=== PATIENT | male | born 1960 | race Caucasian/White ===

== ENCOUNTER 2022-01-18 12:21 | Outpatient (REF) | payer OTHER, SELFPAY ==
--- NOTE | ~2022-01-18 | XR_ITS ---
EXAMINATION: XR ANKLE, RIGHT XR FOOT, RIGHT CLINICAL INFORMATION: Pain ankle and foot COMPARISON: None TECHNIQUE: The ankle is imaged in 2 views. The foot is imaged in 2 views. A lateral view of the combined right ankle and foot is also obtained for a total of 5 views. FINDINGS: Bony mineralization appears within normal. There is no periarticular demineralization. The malleoli are intact and the ankle mortise is symmetric. There is no ankle fracture or dislocation or destructive process. No ankle capsular effusion. The subtalar joint is unremarkable. The retrocalcaneal recess is preserved. There is a borderline tiny posterior calcaneal spur. The midfoot and forefoot show no fracture or dislocation or erosive arthropathy. There is a bunion medial first metatarsal head and mild degenerative change first MTP. There is mild joint narrowing interphalangeal joints digits. XR/XR foot RT min 3V IMPRESSION: 1. No fracture, dislocation, or erosive arthropathy. 2. Bunion and degenerative changes first MTP. 3. Mild narrowing interphalangeal joints. 4. Tiny posterior calcaneal spur.
--- NOTE | ~2022-01-18 | XR_ITS ---
EXAMINATION: XR ANKLE, RIGHT XR FOOT, RIGHT CLINICAL INFORMATION: Pain ankle and foot COMPARISON: None TECHNIQUE: The ankle is imaged in 2 views. The foot is imaged in 2 views. A lateral view of the combined right ankle and foot is also obtained for a total of 5 views. FINDINGS: Bony mineralization appears within normal. There is no periarticular demineralization. The malleoli are intact and the ankle mortise is symmetric. There is no ankle fracture or dislocation or destructive process. No ankle capsular effusion. The subtalar joint is unremarkable. The retrocalcaneal recess is preserved. There is a borderline tiny posterior calcaneal spur. The midfoot and forefoot show no fracture or dislocation or erosive arthropathy. There is a bunion medial first metatarsal head and mild degenerative change first MTP. There is mild joint narrowing interphalangeal joints digits. XR/XR ankle RT 2V IMPRESSION: 1. No fracture, dislocation, or erosive arthropathy. 2. Bunion and degenerative changes first MTP. 3. Mild narrowing interphalangeal joints. 4. Tiny posterior calcaneal spur.
== END 2022-01-18 12:22 | disposition home or self-care (01) ==
LOC: HO.XRAY 12:21
PROVIDERS: PCP Nurse Practitioner; Visit Provider Nurse Practitioner Primary Care
DX: M25.571 Pain in right ankle and joints of right foot (principal); M79.671 Pain in right foot
CPT/HCPCS: 73600; 73630

== ENCOUNTER 2022-02-04 21:05 | Emergency (ER) | payer OTHER, SELFPAY ==
[2022-02-04 21:13] VITALS: BP 122/82; BP 97/66; PULSE 95; PULSE 97; RESP 16; TEMP 36.7; O2SAT 100; O2SAT 99; BMI 17.4
[2022-02-04 22:32] LABS: MANUAL DIFF FLAG NO
[2022-02-04 22:33] LABS: Basophils Absolute Auto 0.1 X10*3/uL (0.0-0.2); Eosinophils Absolute Auto 0.3 X10*3/uL (0.0-0.4); Eosinophils Percent Auto 2.9 % (0-4); Hematocrit 33.8 % (42.0-52.0); Hemoglobin 11.6 g/dl (14.0-18.0); Imm Gran Abs Auto 0.02 X10*3/uL (0.00-0.03); Imm Gran Pct Auto 0.2 % (0.0-0.4); Lymphocytes Absolute Auto 2.9 X10*3/uL (1.2-4.9); Lymphocytes Percent Auto 30.8 % (20-40); Mean Corpuscular HGB Conc 34.3 g/dl (31.0-36.0); Mean Corpuscular Hemoglobin 29.2 pg (27.0-33.0); Mean Corpuscular Volume 85.1 fL (80.0-98.0); Mean Platelet Volume 8.2 fL (9.4-12.4); Monocytes Absolute Auto 0.8 X10*3/uL (0.1-1.2); Monocytes Percent Auto 8.6 % (2-11); Neutrophils Absolute Auto 5.4 x10*3/uL (2.0-8.3); Neutrophils Percent Auto 56.5 % (45-73); Platelet Count 243 X10*3/uL (160-400); Red Blood Count 3.97 X10*6/uL (4.60-5.80); Red Cell Distribution Width 14.6 % (11.0-16.0); White Blood Count 9.5 X10*3/uL (4.8-10.8)
--- NOTE | 2022-02-04 22:39 | ED.GENADULT ---
HPI - General Adult General Chief complaint: General Medical Stated complaint: +Covid Time Seen by Provider: 02/04/22 22:26 Source: patient Mode of arrival: ambulatory Limitations: no limitations History of Present Illness HPI narrative: Patient not vaccinated against COVID had COVID 8 months ago been having nausea vomiting body aches diarrhea for last 3-4 days went to urgent care COVID tested positive started on paxlovid , does have a slight cough no significant shortness of breath vomited about 3 4 times a day 7 amount of diarrhea Related Data Previous Rx's Medication Instructions Recorded benzonatate 200 mg capsule 200 mg PO TID PRN cough #20 caps 02/04/22 dicyclomine 20 mg tablet 20 mg PO QID PRN abdominal pain 02/04/22 #12 tabs ondansetron 4 mg disintegrating 4 mg PO Q6-8H PRN nausea and 02/04/22 tablet vomiting #7 tabs Allergies Allergy/AdvReac Type Severity Reaction Status Date / Time acetaminophen [From TYLENOL] Allergy Unknown HIVES Verified 02/04/22 22:59 aspirin [ASPIRIN] Allergy Unknown HIVES Verified 02/04/22 22:59 Review of Systems Review of Systems: Yes all other systems are reviewed and are negative [facility] Social History Social History Advance Directives: No Advance Directives Information Provided: Yes Physical Exam ED Vital Signs: Vital Signs - 24 hr 02/04/22 21:13 02/04/22 23:51 Temperature 98.0 F 98.1 F Pulse Rate 95 67 Respiratory Rate 16 18 Blood Pressure 97/66 97/68 Pulse Oximetry 99 98 Oxygen Delivery Method Room Air Room Air BMI result Body Mass Index 17.4 Appearance: Alert. Oriented X3. No acute distress. ENT: Pharynx normal. Oral Mucosa moist Neck: Normal inspection. Neck supple. CVS: Normal heart rate and rhythm. Pulses normal. Respiratory: No respiratory distress. Equal air entry bilateral, no wheezing/rales/rhonchi Abdomen: Soft and nontender. Bowel sounds are present, no mass palpable, no CVA tenderness Skin: Skin warm and dry. Normal skin color. Normal skin turgor. Extremities: No lower extremity edema. No calf tenderness Neuro: Oriented X 3. Medications Administered Discontinued Medications Generic Name Dose Route Start Last Admin Trade Name Freq PRN Reason Stop Dose Admin Benzonatate 200 mg 02/04/22 22:49 02/04/22 22:59 Benzonatate 100 Mg Capsule PO 02/04/22 22:50 200 mg ONCE ONE Administration Dicyclomine HCl 20 mg 02/04/22 22:49 02/04/22 22:59 Dicyclomine Hcl 10 Mg Capsule PO 02/04/22 22:50 20 mg ONCE ONE Administration Ondansetron HCl 4 mg 02/04/22 22:49 02/04/22 22:59 Ondansetron Odt 4 Mg Tab.Rapdis TRANSLINGU 02/04/22 22:50 4 mg ONCE ONE Administration Medical Decision Making Lab Data MDM Lab Attestation statement: I reviewed the patient's lab results. Result Diagrams: 02/04/22 22:28 02/04/22 22:28 Labs: Lab Results 02/04/22 02/04/22 Range/Units 22:28 22:28 WBC 9.5 (4.8-10.8) X10*3/uL RBC 3.97 L (4.60-5.80) X10*6/uL Hgb 11.6 L (14.0-18.0) g/dl Hct 33.8 L (42.0-52.0) % MCV 85.1 (80.0-98.0) fL MCH 29.2 (27.0-33.0) pg MCHC 34.3 (31.0-36.0) g/dl RDW 14.6 (11.0-16.0) % Plt Count 243 (160-400) X10*3/uL MPV 8.2 L (9.4-12.4) fL Immature Gran % (Auto) 0.2 (0.0-0.4) % Neut % (Auto) 56.5 (45-73) % Lymph % (Auto) 30.8 (20-40) % [place] % (Auto) 8.6 (2-11) % Eos % (Auto) 2.9 (0-4) % Baso % (Auto) 1.0 (0-2) % Lymph # (Auto) 2.9 (1.2-4.9) X10*3/uL [place] # (Auto) 0.8 (0.1-1.2) X10*3/uL Eos # (Auto) 0.3 (0.0-0.4) X10*3/uL Baso # (Auto) 0.1 (0.0-0.2) X10*3/uL Abs Immat Gran (auto) 0.02 (0.00-0.03) X10*3/uL Absolute Neuts (auto) 5.4 (2.0-8.3) x10*3/uL Absolute Nucleated RBC 0.000 (0.0-0.012) X10*3/uL Nucleated RBC % (auto) 0.0 (0.0-0.2) /100WBC Sodium 135 (135-145) mmol/L Potassium 3.6 (3.3-5.1) mmol/L Chloride 103 (96-108) mmol/L Carbon Dioxide 23 (22-29) mmol/L Anion Gap 13 (12-20) BUN 13 (9-16) mg/dL Creatinine 0.96 (0.5-1.4) mg/dL Estim Creat Clear Calc 53.0 Estimated GFR > 60 Random Glucose 88 (60-115) mg/dL Calcium 8.6 (8.4-10.2) mg/dL Total Bilirubin 0.5 (0.0-1.0) mg/dL AST 14 (5-37) U/L ALT 14 (0-40) U/L Alkaline Phosphatase 68 (39-117) U/L Total Protein 7.2 (6.5-8.0) g/dL Albumin 4.3 (3.5-5.0) g/dL Discharge Plan Discharge Clinical Impression: COVID-19 Patient Disposition: Home, Self-Care Instructions: COVID-19 (Coronavirus Disease 2019) (ED) Additional Instructions: Drink plenty of fluid Medicine for nausea and abdominal cramps as prescribed Prescriptions: New benzonatate 200 mg capsule 200 mg PO TID PRN (Reason: cough) Qty: 20 0RF dicyclomine 20 mg tablet 20 mg PO QID PRN (Reason: abdominal pain) Qty: 12 0RF ondansetron 4 mg tablet,disintegrating 4 mg PO Q6-8H PRN (Reason: nausea and vomiting) Qty: 7 0RF Interventions: ED Discharge Assessment Last Done: 02/04/22 23:52 Discharge Date/Time: 02/04/22 23:53
[2022-02-04 22:52] LABS: Alanine Aminotransferase 14 U/L (0-40); Albumin Level 4.3 g/dL (3.5-5.0); Alkaline Phosphatase 68 U/L (39-117); Anion Gap 13 (12-20); Aspartate Amino Transferase 14 U/L (5-37); Bilirubin Total 0.5 mg/dL (0.0-1.0); Blood Urea Nitrogen 13 mg/dL (9-16); Calcium 8.6 mg/dL (8.4-10.2); Carbon Dioxide 23 mmol/L (22-29); Chloride 103 mmol/L (96-108); Estimated Glomerular Filt Rate > 60; Glucose Random 88 mg/dL (60-115); Potassium 3.6 mmol/L (3.3-5.1); Sodium 135 mmol/L (135-145); Total Protein 7.2 g/dL (6.5-8.0)
[2022-02-04 23:51] VITALS: BP 97/68; PULSE 67; RESP 18; TEMP 36.7; O2SAT 98
== END 2022-02-04 23:53 | disposition home or self-care (01) ==
PROVIDERS: Emergency Provider Internal Medicine
DX: U07.1 COVID-19 (principal); R11.2 Nausea with vomiting, unspecified; Z79.899 Other long term (current) drug therapy
CPT/HCPCS: 36415; 71045; 80053; 85025; 99282; 99283

== ENCOUNTER 2022-03-25 22:40 | Emergency (ER) | payer OTHER, SELFPAY ==
--- NOTE | 2022-03-25 23:52 | ECG_ITS ---
Test Reason : OVER DOSE Blood Pressure : / mmHG Vent. Rate : 074 BPM Atrial Rate : 074 BPM P-R Int : 164 ms QRS Dur : 076 ms QT Int : 400 ms P-R-T Axes : 083 -51 052 degrees QTc Int : 444 ms Normal sinus rhythm Left anterior fascicular block Abnormal ECG No previous ECGs available Referred By: Ashly Tran Electronically Signed By:YVONNE DAVIS MD
--- NOTE | 2022-03-26 00:19 | PC.NURSE ---
Addendum entered by Victoira Marina 03/26/22 06:33: Narcan given to take home. Instructions given and understood. Addendum entered by Victoria Marina 03/26/22 06:12: PT awake, PO fluids and sandwich given. Addendum entered by Victorai Marina 03/26/22 01:27: PT sleeping, awakens upon verbal stimuli, no apparent distress. Will CTM. Original Note: PT reports snorting heroine today. EMS reports Narcan and CPR was given by bystanders. A&Ox3, PT denies SI/HI. States I'm cold .
[2022-03-26 00:27] LABS: MANUAL DIFF FLAG NO
[2022-03-26 00:31] VITALS: BP 114/74; PULSE 73; RESP 16; TEMP 36.8; O2SAT 96
[2022-03-26 00:31] LABS: Basophils Percent Auto 0.3 % (0-2); Eosinophils Absolute Auto 0.1 X10*3/uL (0.0-0.4); Eosinophils Percent Auto 0.9 % (0-4); Hematocrit 33.1 % (42.0-52.0); Hemoglobin 11.4 g/dl (14.0-18.0); Imm Gran Abs Auto 0.09 X10*3/uL (0.00-0.03); Imm Gran Pct Auto 0.8 % (0.0-0.4); Lymphocytes Absolute Auto 1.4 X10*3/uL (1.2-4.9); Lymphocytes Percent Auto 11.9 % (20-40); Mean Corpuscular HGB Conc 34.4 g/dl (31.0-36.0); Mean Corpuscular Volume 87.1 fL (80.0-98.0); Monocytes Absolute Auto 0.6 X10*3/uL (0.1-1.2); Monocytes Percent Auto 4.9 % (2-11); Neutrophils Absolute Auto 9.7 x10*3/uL (2.0-8.3); Neutrophils Percent Auto 81.2 % (45-73); Platelet Count 222 X10*3/uL (160-400); Red Cell Distribution Width 13.6 % (11.0-16.0)
[2022-03-26 00:33] LABS: COVID-19 Test Negative (Negative); IDNOW Serial# 6674DD1D
[2022-03-26 00:42] LABS: Appearance Urine Clear; Color Urine Yellow; Glucose Urine UA 250 mg/dL (Negative); Leukocyte Esterase Urine Negative (Negative); Nitrite Urine Negative (Negative); PH 6.5 (5.0-9.0); UMIC TRIGGER UACC YES; Urine Blood Negative (Negative); Urine Ketones Negative (Negative); Urine Protein 30 (1+) mg/dL (Neg-Trace)
[2022-03-26 00:45] LABS: Bacteria Urine None Seen (None Seen); Hyaline Casts Urine 0-2 /LPF (0-2); RBC Urine 0-2 /HPF (0-2); Squamous Epithelial Cell Urine 0-2 /HPF (0-2); WBC Urine 0-5 /HPF (0-5)
[2022-03-26 00:51] LABS: Anion Gap 14 (12-20); Blood Urea Nitrogen 9 mg/dL (9-16); Carbon Dioxide 25 mmol/L (22-29); Chloride 108 mmol/L (96-108); Potassium 4.5 mmol/L (3.3-5.1); Sodium 142 mmol/L (135-145)
[2022-03-26 00:52] LABS: Alanine Aminotransferase 25 U/L (0-40); Albumin Level 3.9 g/dL (3.5-5.0); Alkaline Phosphatase 68 U/L (39-117); Aspartate Amino Transferase 36 U/L (5-37); Bilirubin Direct 0.2 mg/dL (0.0-0.5); Bilirubin Total 0.6 mg/dL (0.0-1.0); Calcium 8.4 mg/dL (8.4-10.2); Estimated Glomerular Filt Rate > 60; Glucose Random 131 mg/dL (60-115); Total Protein 6.5 g/dL (6.5-8.0)
[2022-03-26 00:58] LABS: Ethanol < 10 mg/dL
[2022-03-26 00:58] LABS: Amphetamine Screen Urine Not Detected (Not Detect); Barbiturates, Urine Not Detected (Not Detect); Benzodiazepines Screen Urine Not Detected (Not Detect); Cannabinoid Screen Urine POSITIVE (Not Detect); Cocaine Screen Urine POSITIVE (Not Detect); Fentanyl, urine POSITIVE (Not Detect); Opiate Screen Urine Not Detected (Not Detect); Phencyclidine Screen Urine Not Detected (Not Detect)
[2022-03-26 01:25] VITALS: BP 102/63; PULSE 70; RESP 22; O2SAT 94
--- NOTE | 2022-03-26 01:29 | ED_ITS ---
HPI - Overdose General Chief Complaint: Overdose Stated Complaint: ? Time Seen by Provider: 03/25/22 23:41 Source: patient and EMS Mode of arrival: EMS Limitations: no limitations History of Present Illness HPI Narrative: Patient comes to the emergency room for a possible overdose. Patient is on wanting to talk much, however, patient states that he admits that he used drugs today and he may have overdosed. No Narcan was given. The patient denies chest pain, shortness of breath headache or any other injury. Patient states that he feels well but feels sleepy. Otherwise no complaints. Patient denies suicidal or homicidal ideation Related Data Previous Rx's Medication Instructions Recorded benzonatate 200 mg capsule 200 mg PO TID PRN cough #20 caps 02/04/22 dicyclomine 20 mg tablet 20 mg PO QID PRN abdominal pain 02/04/22 #12 tabs ondansetron 4 mg disintegrating 4 mg PO Q6-8H PRN nausea and 02/04/22 tablet vomiting #7 tabs Allergies Allergy/AdvReac Type Severity Reaction Status Date / Time acetaminophen [From TYLENOL] Allergy Unknown HIVES Verified 02/04/22 22:59 aspirin [ASPIRIN] Allergy Unknown HIVES Verified 02/04/22 22:59 Review of Systems Review of Systems: Constitutional : No Weight loss, No Fever, No Chills, No Night Sweats, No Fatigue, No Malaise ENT/Mouth : No Hearing loss, No Ear Pain, No Nasal Congestion, No Sinus Pain, No Hoarseness, No sore throat, No Rhinorrhea, No Swallowing Difficulty Eyes: No Eye Pain, No Swelling, No Redness, No Foreign Body, No Discharge, No Vision Changes Cardiovascular : No Chest Pain, No SOB, No Dyspnea on Exertion, No Orthopnea, No Edema, No Palpitations Respiratory : No Cough, No Sputum, No Wheezing, No Smoke Exposure, No Dyspnea Gastrointestinal : No Nausea, No Vomiting, No Diarrhea, No Constipation, No abdominal Pain, No Hematochezia, No Melena Genitourinary : no irregular bleeding, No Dysuria, No Urinary Frequency, No Hematuria, No Urinary Incontinence, No Urgency, No Flank Pain, No Urinary Flow Changes, No Hesitancy Musculoskeletal : No joint pain, No Myalgias, No Joint Swelling Skin : No Skin Lesions, No rash Neuro : No Weakness, No Numbness, No Paresthesias, No Loss of Consciousness, No Dizziness, No Headache Psych : No Anxiety/Panic, No Depression, No SI/HI/AH/VH, admits to accidental overdose Heme/Lymph: No Bruising, No Bleeding,No Lymphadenopathy Endocrine : No Polyuria, No Polydipsia, No Temperature Intolerance PMF Past Medical History Medical History Substance abuse Social History Social History Alcohol intake: never Smoked in Last 30 Days: Yes Use of substances other than those prescribed or required for medical reasons: Yes Substance Use Type: Heroin and Marijuana Substance Use Frequency: Daily Advance Directives: No Advance Directives Information Provided: Yes Physical Exam Vital Signs: Vital Signs: Last Vital Signs Temp 98.3 F 03/26/22 00:31 Pulse 70 03/26/22 01:25 Resp 22 H 03/26/22 01:25 BP 102/63 03/26/22 01:25 Pulse Ox 94 03/26/22 01:25 O2 Del Method 03/26/22 01:25 Const: Other: Appearance: Alert. Oriented X3. No acute distress. Somnolent but easily arousable Eyes: Pupils equal, round and reactive to light. ENT: Pharynx normal. Neck: Normal inspection. Neck supple. No lymph nodes noted. No crepitus CVS: Normal heart rate and rhythm. Pulses normal. Normal S1 and S2 Respiratory: No respiratory distress. Breath sounds normal. No Wheezing. No rales Abdomen: Soft and nontender. No rigidity. No distention. Skin: Skin warm and dry. Normal skin color. Normal skin turgor. Extremities: No lower extremity edema. No Lacerations. No Rash Neuro: Oriented X 3. No motor deficit. No sensory deficit. Moving all extremities. No slurred speech. CN 2 through 12 grossly intact Psych: calm, cooperative, normal affect Course Course Course Narrative: -patient's urine tested positive for fentanyl, cocaine, marijuana. Patient has no chest pain. -EKG my interpretation: Normal sinus rhythm, no ST segment depression or elevation, no T-wave inversion, QTC 444 -patient denies suicidal or homicidal ideation. -metabolize to freedom, discharge when awake -patient will be provided with home Narcan. Consult for care team for sude evaluation pending. At this time, patient states that he is not interested, patient very somnolent, will reassess prior to discharge patient wants help -sign-out given to Dr. Mazariegos Medical Decision Making Lab Data 03/26/22 00:13 03/26/22 00:13 Labs: Lab Results 03/26/22 03/26/22 03/26/22 Range/Units 00:13 00:13 00:13 WBC 12.0 H (4.8-10.8) X10*3/uL RBC 3.80 L (4.60-5.80) X10*6/uL Hgb 11.4 L (14.0-18.0) g/dl Hct 33.1 L (42.0-52.0) % MCV 87.1 (80.0-98.0) fL MCH 30.0 (27.0-33.0) pg MCHC 34.4 (31.0-36.0) g/dl RDW 13.6 (11.0-16.0) % Plt Count 222 (160-400) X10*3/uL MPV 9.0 L (9.4-12.4) fL Immature Gran % (Auto) 0.8 H (0.0-0.4) % Neut % (Auto) 81.2 H (45-73) % Lymph % (Auto) 11.9 L (20-40) % [place] % (Auto) 4.9 (2-11) % Eos % (Auto) 0.9 (0-4) % Baso % (Auto) 0.3 (0-2) % Lymph # (Auto) 1.4 (1.2-4.9) X10*3/uL [place] # (Auto) 0.6 (0.1-1.2) X10*3/uL Eos # (Auto) 0.1 (0.0-0.4) X10*3/uL Baso # (Auto) 0.0 (0.0-0.2) X10*3/uL Abs Immat Gran (auto) 0.09 H (0.00-0.03) X10*3/uL Absolute Neuts (auto) 9.7 H (2.0-8.3) x10*3/uL Absolute Nucleated RBC 0.000 (0.0-0.012) X10*3/uL Nucleated RBC % (auto) 0.0 (0.0-0.2) /100WBC Sodium 142 (135-145) mmol/L Potassium 4.5 D (3.3-5.1) mmol/L Chloride 108 (96-108) mmol/L Carbon Dioxide 25 (22-29) mmol/L Anion Gap 14 (12-20) BUN 9 (9-16) mg/dL Creatinine 0.99 (0.5-1.4) mg/dL Estim Creat Clear Calc TNP Estimated GFR > 60 Random Glucose 131 H (60-115) mg/dL Calcium 8.4 (8.4-10.2) mg/dL Total Bilirubin 0.6 (0.0-1.0) mg/dL Direct Bilirubin 0.2 (0.0-0.5) mg/dL AST 36 (5-37) U/L ALT 25 (0-40) U/L Alkaline Phosphatase 68 (39-117) U/L Total Protein 6.5 (6.5-8.0) g/dL Albumin 3.9 (3.5-5.0) g/dL Urine Color Urine Appearance Urine pH (5.0-9.0) Ur Specific [place] (1.005-1.025) Urine Protein (Neg-Trace) mg/dL Urine Glucose (UA) (Negative) mg/dL Urine Ketones (Negative) mg/dL Urine Blood (Negative) Urine Nitrite (Negative) Ur Leukocyte Esterase (Negative) Urine RBC (0-2) /HPF Urine WBC (0-5) /HPF Ur Squamous Epith Cells (0-2) /HPF Urine Bacteria (None Seen) Hyaline Casts (0-2) /LPF Urine Opiates Screen (Not Detect) Urine Fentanyl Screen (Not Detect) Ur Barbiturates Screen (Not Detect) Ur Phencyclidine Scrn (Not Detect) Ur Amphetamines Screen (Not Detect) U Benzodiazepines Scrn (Not Detect) Urine Cocaine Screen (Not Detect) U Marijuana (THC) Screen (Not Detect) Ethyl Alcohol mg/dL COVID-19 (JASON) Negative (Negative) COVID-19 Clin Com See Note 03/26/22 03/26/22 03/26/22 Range/Units 00:13 00:29 00:29 WBC (4.8-10.8) X10*3/uL RBC (4.60-5.80) X10*6/uL Hgb (14.0-18.0) g/dl Hct (42.0-52.0) % MCV (80.0-98.0) fL MCH (27.0-33.0) pg MCHC (31.0-36.0) g/dl RDW (11.0-16.0) % Plt Count (160-400) X10*3/uL MPV (9.4-12.4) fL Immature Gran % (Auto) (0.0-0.4) % Neut % (Auto) (45-73) % Lymph % (Auto) (20-40) % [place] % (Auto) (2-11) % Eos % (Auto) (0-4) % Baso % (Auto) (0-2) % Lymph # (Auto) (1.2-4.9) X10*3/uL [place] # (Auto) (0.1-1.2) X10*3/uL Eos # (Auto) (0.0-0.4) X10*3/uL Baso # (Auto) (0.0-0.2) X10*3/uL Abs Immat Gran (auto) (0.00-0.03) X10*3/uL Absolute Neuts (auto) (2.0-8.3) x10*3/uL Absolute Nucleated RBC (0.0-0.012) X10*3/uL Nucleated RBC % (auto) (0.0-0.2) /100WBC Sodium (135-145) mmol/L Potassium (3.3-5.1) mmol/L Chloride (96-108) mmol/L Carbon Dioxide (22-29) mmol/L Anion Gap (12-20) BUN (9-16) mg/dL Creatinine (0.5-1.4) mg/dL Estim Creat Clear Calc Estimated GFR Random Glucose (60-115) mg/dL Calcium (8.4-10.2) mg/dL Total Bilirubin (0.0-1.0) mg/dL Direct Bilirubin (0.0-0.5) mg/dL AST (5-37) U/L ALT (0-40) U/L Alkaline Phosphatase (39-117) U/L Total Protein (6.5-8.0) g/dL Albumin (3.5-5.0) g/dL Urine Color Yellow Urine Appearance Clear Urine pH 6.5 (5.0-9.0) Ur Specific [place] 1.010 (1.005-1.025) Urine Protein 30 (1+) H (Neg-Trace) mg/dL Urine Glucose (UA) 250 H (Negative) mg/dL Urine Ketones Negative (Negative) mg/dL Urine Blood Negative (Negative) Urine Nitrite Negative (Negative) Ur Leukocyte Esterase Negative (Negative) Urine RBC 0-2 (0-2) /HPF Urine WBC 0-5 (0-5) /HPF Ur Squamous Epith Cells 0-2 (0-2) /HPF Urine Bacteria None Seen (None Seen) Hyaline Casts 0-2 (0-2) /LPF Urine Opiates Screen Not Detected (Not Detect) Urine Fentanyl Screen POSITIVE H (Not Detect) Ur Barbiturates Screen Not Detected (Not Detect) Ur Phencyclidine Scrn Not Detected (Not Detect) Ur Amphetamines Screen Not Detected (Not Detect) U Benzodiazepines Scrn Not Detected (Not Detect) Urine Cocaine Screen POSITIVE H (Not Detect) U Marijuana (THC) Screen POSITIVE H (Not Detect) Ethyl Alcohol < 10 mg/dL COVID-19 (JASON) (Negative) COVID-19 Clin Com Discharge Plan Discharge Clinical Impression: Drug overdose Patient Disposition: Still a Patient Prescriptions: No Action benzonatate 200 mg capsule 200 mg PO TID PRN (Reason: cough) Qty: 20 0RF dicyclomine 20 mg tablet 20 mg PO QID PRN (Reason: abdominal pain) Qty: 12 0RF ondansetron 4 mg tablet,disintegrating 4 mg PO Q6-8H PRN (Reason: nausea and vomiting) Qty: 7 0RF Interventions: [place]-Suicide Risk Severity Scale Last Done: 03/26/22 00:00
[2022-03-26 04:03] VITALS: BP 95/61; PULSE 70; RESP 19; TEMP 36.8; O2SAT 92
[2022-03-26 06:11] VITALS: BP 102/63; PULSE 66; RESP 16; O2SAT 96
[2022-03-26] MEDS: Naloxone HCl Nasal TAKE HOME 4 MG SPRAY NOSTRILALT (06:33)
== END 2022-03-26 06:59 | disposition home or self-care (01) ==
PROVIDERS: Emergency Provider Emergency Medicine
DX: T40.1X1A Poisoning by heroin, accidental (unintentional), initial encounter (principal); R07.89 Other chest pain; Y92.9 Unspecified place or not applicable; Z20.822 Contact with and (suspected) exposure to COVID-19; Z20.828 Contact with and (suspected) exposure to other viral communicable diseases; Z79.899 Other long term (current) drug therapy
CPT/HCPCS: 36415; 80048; 80076; 80307; 81001; 82077; 85025; 87635; 93005; 99284; 99285

== ENCOUNTER 2022-10-13 18:26 | Emergency (ER) | payer OTHER, SELFPAY ==
[2022-10-13 18:34] VITALS: BP 104/78; PULSE 88; O2SAT 99
[2022-10-13 18:41] VITALS: BMI 18.3
[2022-10-13 18:45] VITALS: BP 112/71; PULSE 85; RESP 16; O2SAT 98
--- NOTE | 2022-10-13 18:49 | PC.NURSE ---
pt a&ox3, vss, nsr on the personal investment adviser vinay but has hx of afib. pt c/o rt lower back, rt leg and rt eye pain. pt has swelling/discharge coming from right eye. denies loss of/blurry vision. pt seen by provider. denies ETOH but states that he is a chronic longstanding substance use abuser - smoked 1 bag of heroin and 1 bag of crack last night. denies use throughout today. resting comfortably in no apparent distress. call morris placed within reach.
--- NOTE | 2022-10-13 19:00 | ED_ITS ---
HPI - Eye Problem General Chief complaint: Eye Problems Stated complaint: R SIDED PAIN R EYE SWELLING Time Seen by Provider: 10/13/22 18:39 Source: patient Mode of arrival: ambulatory Limitations: no limitations History of Present Illness HPI Narrative: Patient comes emergency room complaining of mild periorbital edema. Questionable very slight erythema in the upper eyelid. Patient denies any vision changes, no pain. Related Data Previous Rx's Medication Instructions Recorded benzonatate 200 mg capsule 200 mg PO TID PRN cough #20 caps 02/04/22 dicyclomine 20 mg tablet 20 mg PO QID PRN abdominal pain 02/04/22 #12 tabs ondansetron 4 mg disintegrating 4 mg PO Q6-8H PRN nausea and 02/04/22 tablet vomiting #7 tabs amoxicillin 500 mg-potassium 1 tab PO BID #14 tabs 10/13/22 clavulanate 125 mg tablet (Augmentin) Allergies Allergy/AdvReac Type Severity Reaction Status Date / Time acetaminophen [From TYLENOL] Allergy Unknown HIVES Verified 02/04/22 22:59 aspirin [ASPIRIN] Allergy Unknown HIVES Verified 10/13/22 18:41 Review of Systems Review of Systems: Constitutional : No Weight loss, No Fever, No Chills, No Night Sweats, No Fatigue, No Malaise ENT/Mouth : No Hearing loss, No Ear Pain, No Nasal Congestion, No Sinus Pain, No Hoarseness, No sore throat, No Rhinorrhea, No Swallowing Difficulty Eyes: Complaining of mild edema around the eyelids especially upper 1, No Eye Pain, No Swelling, No Redness, No Foreign Body, No Discharge, No Vision Changes Cardiovascular : No Chest Pain, No SOB, No Dyspnea on Exertion, No Orthopnea, No Edema, No Palpitations Respiratory : No Cough, No Sputum, No Wheezing, No Smoke Exposure, No Dyspnea Gastrointestinal : No Nausea, No Vomiting, No Diarrhea, No Constipation, No abdominal Pain, No Hematochezia, No Melena Genitourinary : no irregular bleeding, No Dysuria, No Urinary Frequency, No Hematuria, No Urinary Incontinence, No Urgency, No Flank Pain, No Urinary Flow Changes, No Hesitancy Musculoskeletal : No joint pain, No Myalgias, No Joint Swelling Skin : No Skin Lesions, No rash Neuro : No Weakness, No Numbness, No Paresthesias, No Loss of Consciousness, No Dizziness, No Headache Psych : No Anxiety/Panic, No Depression, No SI/HI/AH/VH, No Social Issues, Heme/Lymph: No Bruising, No Bleeding,No Lymphadenopathy Endocrine : No Polyuria, No Polydipsia, No Temperature Intolerance [facility] Past Medical History Medical History Substance abuse Social History Social History Alcohol intake: never Smoked in Last 30 Days: Yes Use of substances other than those prescribed or required for medical reasons: Yes Substance Use Type: Crack/Cocaine and Heroin Substance Use Frequency: Chronic Longstanding Last Used Substance: Days (ago) Any prior treatment program specific to substance use: Yes Advance Directives: No Advance Directives Information Provided: Yes Physical Exam Vital Signs: Vital Signs: Last Vital Signs Pulse 85 10/13/22 18:45 Resp 16 10/13/22 18:45 BP 112/71 10/13/22 18:45 Pulse Ox 98 10/13/22 18:45 O2 Del Method Room Air 10/13/22 18:45 BMI result Body Mass Index 18.3 Const: Other: Appearance: Alert. Oriented X3. No acute distress. Eyes: Pupils equal, round and reactive to light. Mild periorbital edema especially in the upper eyelid. Very slight erythema. Patient has no pain with eye movements, normal range of motion ENT: Pharynx normal. Neck: Normal inspection. Neck supple. No lymph nodes noted. No crepitus CVS: Normal heart rate and rhythm. Pulses normal. Normal S1 and S2 Respiratory: No respiratory distress. Breath sounds normal. No Wheezing. No rales Abdomen: Soft and nontender. No rigidity. No distention. Skin: Skin warm and dry. Normal skin color. Normal skin turgor. Extremities: No lower extremity edema. No Lacerations. No Rash Neuro: Oriented X 3. No motor deficit. No sensory deficit. Moving all extremities. No slurred speech. CN 2 through 12 grossly intact Psych: calm, cooperative, normal affect Medical Decision Making Medical Decision Making MDM Narrative: I discussed the physical exam of the patient, patient have a slight allergic reaction versus beginning of periorbital cellulitis versus mild edema -as mentioned above, range of motion of the eyes within normal limits, orbital cellulitis is not suspected. Differential Diagnosis Differential Diagnoses: The differential diagnosis associated with the presentation includes (As above) Discharge Plan Discharge Clinical Impression: Periorbital edema Patient Disposition: Home, Self-Care Instructions: Periorbital Cellulitis in Adults (ED) Additional Instructions: Please follow-up with your primary care physician tomorrow. If you have any worsening or new symptoms, please return to the emergency room or call 911 Prescriptions: New amoxicillin-pot clavulanate [Augmentin] 500-125 mg tablet 1 tab PO BID Qty: 14 0RF No Action benzonatate 200 mg capsule 200 mg PO TID PRN (Reason: cough) Qty: 20 0RF dicyclomine 20 mg tablet 20 mg PO QID PRN (Reason: abdominal pain) Qty: 12 0RF ondansetron 4 mg tablet,disintegrating 4 mg PO Q6-8H PRN (Reason: nausea and vomiting) Qty: 7 0RF
== END 2022-10-13 20:40 | disposition home or self-care (01) ==
PROVIDERS: Emergency Provider Emergency Medicine
DX: H02.841 Edema of right upper eyelid (principal); F19.10 Other psychoactive substance abuse, uncomplicated
CPT/HCPCS: 99283; 99284